=== PATIENT | male | born 1960 | race Caucasian/White ===

== ENCOUNTER 2021-08-16 10:00 | Outpatient (RCR) | payer SELFPAY ==
[2021-08-16] VITALS (9 sets, daily range): BP systolic 116–159; BP diastolic 63–73; PULSE 63–100; RESP 14–16; TEMP 36.1–36.8; O2SAT 100
[2021-08-16] MEDS: FUROSEMIDE 10 MG/ML inj 20 MG IV (12:54)
== END 2021-09-08 23:59 | disposition home or self-care (01) ==
LOC: CCIC 10:00
PROVIDERS: Visit Provider Nurse Practitioner Family
DX: D64.9 Anemia, unspecified (principal)
CPT/HCPCS: 36415; 36430; 86850; 86900; 86901; 86922; 96376; J1940; P9016